=== PATIENT | female | born 1990 | race Caucasian/White ===

== ENCOUNTER 2021-02-13 17:57 | Emergency (ER) | payer OTHER, SELFPAY ==
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
[2021-02-13 18:12] VITALS: BP 136/87; PULSE 74; RESP 14; TEMP 36.9; O2SAT 98
--- NOTE | 2021-02-13 18:28 | ECG_ITS ---
Measurements Intervals [place]te Rate: 69 P: 51 CO: 151 QRS: 42 QRSD: 96 T: 20 QT: 359 QTc: 385 Interpretive Statements SINUS RHYTHM WITH SINUS ARRHYTHMIA POSSIBLE LEFT ATRIAL ENLARGEMENT INCOMPLETE RIGHT BUNDLE BRANCH BLOCK BORDERLINE ECG Electronically Signed On 02-13-2021 21:20:03 CDT by Dwain Oscar D.O.
--- NOTE | 2021-02-13 18:43 | PC.NURSE ---
pt declined toradol injection. edp aware.
[2021-02-13 19:07] LABS: Basophils Absolute Auto 0.02 K/mm3 (0.00-0.10); Basophils Percent Auto 0.2 % (0.0-1.0); Eosinophils Absolute Auto 0.35 K/mm3 (0.02-0.50); Eosinophils Percent Auto 3.2 % (1.0-6.0); Hematocrit 42.3 % (35.0-49.0); Hemoglobin 13.8 g/dL (12.0-15.0); Immature Granulocyte Absolute 0.03 K/mm3 (0.00-0.00); Immature Granulocyte Percent A 0.3 % (0.0-0.0); Lymphocytes Absolute Auto 2.97 K/mm3 (1.10-4.50); Mean Corpuscular HGB Conc 32.6 g/dL (32.0-36.0); Mean Corpuscular Hemoglobin 29.2 pg (27.0-31.0); Mean Corpuscular Volume 89.6 fL (78.0-102.0); Mean Platelet Volume 9.9 fl (9.2-11.8); Monocytes Absolute Auto 0.74 K/mm3 (0.10-0.90); Monocytes Percent Auto 6.7 % (2.0-11.0); Neutrophils Absolute Auto 6.9 K/mm3 (1.7-7.2); Neutrophils Percent Auto 62.6 % (50.0-70.0); Platelet Count Result 418 K/mm3 (150-420); Red Blood Count 4.72 M/mm3 (4.20-5.40); Red Cell Distribution Width 12.7 % (11.6-14.4)
[2021-02-13 19:16] LABS: Serum Qual hCG NEG
[2021-02-13 19:17] LABS: SPREG INTERNAL CONTROL Positive
[2021-02-13 19:24] LABS: Alanine Aminotransferase 26 U/L (14-59); Albumin Level 3.8 g/dL (3.4-5.0); Alkaline Phosphatase 73 U/L (46-116); Anion Gap 11 mmol/L (8-16); Aspartate Amino Transferase 16 U/L (15-37); Bilirubin,Total 0.2 mg/dL (0.00-1.00); Blood Urea Nitrogen 12 mg/dL (7-18); Calcium 9.4 mg/dL (8.5-10.1); Carbon Dioxide 26 mmol/L (21-32); Chloride 105 mmol/L (98-108); Estimated CRCL calculation 97 ml/min; Estimated Glomerular Filt Rate > 60; Glucose 99 mg/dL (70-99); Osmolality Calculated 293 mOsm/kg (285-295); Potassium 4.6 mmol/L (3.5-5.1); Sodium 142 mmol/L (136-145); Total Protein 7.8 g/dL (6.4-8.2)
[2021-02-13 19:25] LABS: Troponin I < 4.0 ng/L (0.00-60.4)
--- NOTE | 2021-02-13 19:30 | PC.NURSE ---
report to [facility]
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
[2021-02-13 20:13] VITALS: BP 134/84; PULSE 96; RESP 20; TEMP 36.9; O2SAT 97
== END 2021-02-13 20:24 | disposition home or self-care (01) ==
PROVIDERS: Emergency Provider Emergency Medicine; PCP Physician Assistant
DX: S13.4XXA Sprain of ligaments of cervical spine, initial encounter (principal); R07.89 Other chest pain; V89.2XXA Person injured in unspecified motor-vehicle accident, traffic, initial encounter
CPT/HCPCS: 36415; 70450; 71250; 72125; 80053; 84484; 84703; 85025; 93005; 99283; 99284

== ENCOUNTER 2022-01-16 05:54 | Emergency (ER) | payer OTHER, SELFPAY ==
[2022-01-16 06:02] VITALS: BP 132/84; PULSE 71; RESP 20; TEMP 36.6; O2SAT 99
--- NOTE | 2022-01-16 06:12 | ED.FEMALEGU ---
HPI - Female Genitourinary General Chief complaint: Skin/Abscess/Foreign Body Stated complaint: Foreign object stuck in Vaginal Area Time Seen by Provider: 01/16/22 06:13 Source: patient and family Mode of arrival: ambulatory Limitations: no limitations History of Present Illness MD elicited complaint: other ( retained tampon after string broke this morning) Onset (ago): hour(s) (1) Location of symptoms: vaginal Severity: mild Female Urogenital Radiation: Non-Radiating Consistency: constant Vaginal discharge: none Vaginal bleeding: scant Exacerbating factors: menstrual period Relieving factors: none Associated symptoms: denies other symptoms Treatment prior to arrival: none Patient : No Related Data Home Medications Medication Instructions Recorded Confirmed norgestimate 0.25 mg-ethinyl 1 tablet PO DAILY 02/13/21 01/16/22 estradiol 35 mcg tablet (Sprintec (28)) buspirone 7.5 mg tablet 1 tablet PO TID 01/16/22 01/16/22 norgestimate 0.25 mg-ethinyl 1 tablet PO DAILY 01/16/22 01/16/22 estradiol 35 mcg tablet (Estarylla) Allergies Allergy/AdvReac Type Severity Reaction Status Date / Time No Known Allergies Allergy Verified 02/13/21 18:11 Review of Systems Review of Systems: All systems reviewed & are unremarkable except as noted in HPI and below PMFSH Past Medical History Medical History Anxiety Headache Surgical History Surgical History (Updated 01/16/22 @ 06:22 by Noel Pierce MD) No pertinent past surgical history Social History Social History (Updated 01/16/22 @ 06:22 by Noel Pierce MD) Smoking status: Never smoker Alcohol intake: current Alcohol use details: occasional Exam Const: General: healthy appearing, no acute distress and alert Nutritional Appearance: well nourished Orientation/consciousness: patient oriented x3 HENMT: Head: normal to inspection Ears: external ears normal Eyes: Conjunctivae: conjunctivae normal Pupils: Equal, round and reactive pupils present EOM: EOMs intact bilaterally Neck: Neck: normal visual inspection Resp: Effort & Inspection: normal respiratory effort Auscultation: clear to auscultation bilaterally Cardio: Rate: regular rate Rhythm: regular rhythm GI: GI Palp: Yes Soft to palpation and No Tenderness to palpation present (GI) Auscultation: normal bowel sounds : External Female Exam: normal external appearance Speculum Exam - Vagina: normal appearance of the vagina, vaginal bleeding and other ( retained tampon invaginal vault) Speculum Exam - Cervix: normal appearance of the cervix Back/Spine/Pelvis: Cervical Spine: cervical ROM normal Thoracic/Lumbar Spine: thoraco-lumbar ROM normal Skin: General skin exam: normal color Neuro: General: patient oriented x3, moves all extremities, no focal motor deficits and CN's II-XI intact bilaterally Speech: normal speech Gait exam (Neuro): Normal gait present Extrem: General: normal to inspection and no clubbing, cyanosis or edema Psych: Appearance: grossly normal and well kempt Mental Status: mental status grossly normal Affect: normal affect Attitude: cooperative Course Vital Signs Vital signs: Vital Signs Temperature 36.6 C 01/16/22 06:02 Pulse Rate 71 01/16/22 06:02 Respiratory Rate 20 01/16/22 06:02 Blood Pressure 132/84 01/16/22 06:02 Pulse Oximetry 99 01/16/22 06:02 Oxygen Delivery Room Air 01/16/22 06:02 Temperature 36.6 C 01/16/22 06:02 Pulse Rate 71 01/16/22 06:02 Respiratory Rate 20 01/16/22 06:02 Blood Pressure 132/84 01/16/22 06:02 Pulse Oximetry 99 01/16/22 06:02 Oxygen Delivery Room Air 01/16/22 06:02 Procedures Foreign Body Removal Foreign Body #1: Foreign Body Removal Date: 01/16/22 Site: vagina Description of foreign body: other ( tampon) Sedation/Analgesia: none Technique: removal with forceps Confir
[2022-01-16 06:21] VITALS: BP 130/72; PULSE 71; RESP 18; O2SAT 98
== END 2022-01-16 06:25 | disposition home or self-care (01) ==
PROVIDERS: Emergency Provider Emergency Medicine; PCP Physician Assistant
DX: T19.2XXA Foreign body in vulva and vagina, initial encounter (principal)
CPT/HCPCS: 99282

== ENCOUNTER 2023-06-16 19:47 | Emergency (ER) | payer OTHER, SELFPAY ==
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
[2023-06-16 19:50] VITALS: BP 143/87; PULSE 87; RESP 20; TEMP 37.4; O2SAT 100
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
[2023-06-16 20:39] VITALS: BP 130/76; PULSE 87; RESP 18; O2SAT 98
== END 2023-06-16 20:53 | disposition home or self-care (01) ==
PROVIDERS: Emergency Provider Preventive Medicine Aerospace Medicine; PCP Physician Assistant
DX: S92.214A Nondisplaced fracture of cuboid bone of right foot, initial encounter for closed fracture (principal); Z79.899 Other long term (current) drug therapy; X50.0XXA Overexertion from strenuous movement or load, initial encounter
CPT/HCPCS: 73610; 73630; 99283; L2112